=== PATIENT | male | born 1995 | race Caucasian/White ===

== ENCOUNTER 2021-04-17 11:32 | Inpatient (IN) | payer BC, OTHER ==
[2021-04-17 12:05] VITALS: BMI 33.9
[2021-04-17] MEDS ORDERED: NICOTINE POLACRILEX 2 MG GUM BUC PRN (12:59)
[2021-04-17] MEDS ORDERED: MAGNESIUM CITRATE 300 ML BOTTLE PO PRN (12:59)
[2021-04-17] MEDS ORDERED: ONDANSETRON *ODT* 4 MG TABLET SL PRN (12:59)
[2021-04-17] MEDS ORDERED: MENTHOL/PHENOL 1 EACH UD MM PRN (12:59)
[2021-04-17] MEDS ORDERED: cloNIDine HCL 0.1 MG TABLET PO PRN (12:59)
[2021-04-17] MEDS ORDERED: IBUPROFEN 400 MG TABLET (FP) PO PRN (12:59)
[2021-04-17] MEDS ORDERED: ACETAMINOPHEN 325 MG TABLET (FP) PO PRN ×2 (12:59)
[2021-04-17] MEDS ORDERED: MAGNESIUM HYDROX 2400MG/30ML ORAL SUSPENSION 30 ML CUP PO PRN (12:59)
[2021-04-17] MEDS ORDERED: BISMUTH SUBSALICYLATE 524 MG/30 ML PO PRN (12:59)
[2021-04-17] MEDS ORDERED: MAG HYDROX/AL HYDROX/SIMETH 30 ML UNIT-DOSE CUP PO PRN (12:59)
[2021-04-17] MEDS ORDERED: METHADONE HCL 10 MG TABLET (FOR DETOX USE ONLY) PO ONE (13:30)
[2021-04-17] MEDS: PRENATAL VITAMINS W/ FOLIC ACID TABLET (FP) PO SCH (13:44)
[2021-04-17] MEDS: NICOTINE 7 MG/24 HOURS TOPICAL PATCH TD SCH (13:44)
[2021-04-17] MEDS: METHOCARBAMOL 500 MG TABLET PO PRN ×2 (13:44→22:13)
[2021-04-17] MEDS: hydrOXYzine PAMOATE 25 MG CAPSULE (FP) PO SCH ×3 (13:45→22:12)
[2021-04-17 16:56] LABS: HEMATOCRIT 35.4 % (35.4-49); HEMOGLOBIN 12.2 GM/dL (11.7-16.9); MCH 30.4 pg (25.7-33.7); MCHC 34.4 g/dl (32.0-35.9); MEAN CELL VOLUME 88.4 fl (80-96); MEAN PLT VOLUME 7.5 fl (7.5-11.1); PLATELET COUNT 303 K/MM3 (134-434); RBC 4.01 M/mm3 (4.00-5.60); RDW 13.6 % (11.9-15.9); WHITE BLOOD COUNT 6.3 K/mm3 (4.0-10.0)
[2021-04-17 17:17] LABS: ALBUMIN 3.7 g/dl (3.4-5.0); BLOOD UREA NITROGEN 17.6 mg/dL (7-18); CALCIUM 8.5 mg/dL (8.5-10.1)
[2021-04-17 17:21] LABS: CREATININE 0.9 mg/dL (0.55-1.3)
[2021-04-17 17:22] LABS: BILIRUBIN,TOTAL 0.3 mg/dL (0.2-1); TOT PROT 7.7 g/dl (6.4-8.2)
[2021-04-17 18:26] LABS: HIV INTERPRETATION NEGATIVE (NEGATIVE)
[2021-04-17] MEDS ORDERED: MELATONIN 5 MG TABLETS PO SCH (22:00)
[2021-04-17] MEDS: THIAMINE HCL 100 MG TABLET (FP) PO SCH (22:12)
[2021-04-17] MEDS: SUVOREXANT 10 MG TABLET PO PRN (22:12)
[2021-04-18] MEDS: hydrOXYzine PAMOATE 25 MG CAPSULE (FP) PO SCH ×5 (05:53→22:08)
[2021-04-18] MEDS ORDERED: METHADONE HCL 10 MG TABLET (FOR DETOX USE ONLY) ONE (09:05)
[2021-04-18] MEDS ORDERED: METHADONE HCL 5 MG TABLET (FOR DETOX USE ONLY) ONE (09:05)
[2021-04-18] MEDS ORDERED: METHADONE (DETOX) 20 MG, METHADONE (DETOX) 5 MG PO ONE (10:00)
[2021-04-18] MEDS: PRENATAL VITAMINS W/ FOLIC ACID TABLET (FP) PO SCH (10:09)
[2021-04-18] MEDS: NICOTINE 7 MG/24 HOURS TOPICAL PATCH TD SCH (10:09)
[2021-04-18] MEDS: METHOCARBAMOL 500 MG TABLET PO PRN ×2 (10:09→22:08)
[2021-04-18] MEDS: diazePAM 5 MG TABLET PO PRN ×3 (10:11→20:46)
[2021-04-18] MEDS: THIAMINE HCL 100 MG TABLET (FP) PO SCH (22:08)
[2021-04-19] MEDS: hydrOXYzine PAMOATE 25 MG CAPSULE (FP) PO SCH ×5 (08:04→22:12)
[2021-04-19] MEDS: diazePAM 5 MG TABLET PO PRN ×4 (09:10→22:16)
[2021-04-19] MEDS: PRENATAL VITAMINS W/ FOLIC ACID TABLET (FP) PO SCH (09:12)
[2021-04-19] MEDS ORDERED: METHADONE HCL 10 MG TABLET (FOR DETOX USE ONLY) PO ONE (10:00)
[2021-04-19] MEDS: METHOCARBAMOL 500 MG TABLET PO PRN ×2 (10:09→17:56)
[2021-04-19] MEDS: NICOTINE 7 MG/24 HOURS TOPICAL PATCH TD SCH (10:10)
[2021-04-19] MEDS: THIAMINE HCL 100 MG TABLET (FP) PO SCH (22:13)
[2021-04-19] MEDS: SUVOREXANT 10 MG TABLET PO PRN (22:16)
[2021-04-20] MEDS: diazePAM 5 MG TABLET PO PRN ×4 (05:25→21:46)
[2021-04-20] MEDS: hydrOXYzine PAMOATE 25 MG CAPSULE (FP) PO SCH ×6 (05:42→23:13)
[2021-04-20 06:08] LABS: SARS-CoV-2 NAA Not Detected (Not Detected)
[2021-04-20] MEDS ORDERED: METHADONE HCL 10 MG TABLET (FOR DETOX USE ONLY) ONE (09:08)
[2021-04-20] MEDS ORDERED: METHADONE HCL 5 MG TABLET (FOR DETOX USE ONLY) ONE (09:09)
[2021-04-20] MEDS ORDERED: METHADONE (DETOX) 10 MG, METHADONE (DETOX) 5 MG PO ONE (10:00)
[2021-04-20] MEDS: NICOTINE 7 MG/24 HOURS TOPICAL PATCH TD SCH (10:08)
[2021-04-20] MEDS: PRENATAL VITAMINS W/ FOLIC ACID TABLET (FP) PO SCH (10:08)
[2021-04-20] MEDS: METHOCARBAMOL 500 MG TABLET PO PRN ×2 (10:11→19:30)
[2021-04-20] MEDS ORDERED: SUVOREXANT 10 MG TABLET PO PRN (22:00)
[2021-04-20] MEDS: THIAMINE HCL 100 MG TABLET (FP) PO SCH (23:13)
[2021-04-21] MEDS: hydrOXYzine PAMOATE 25 MG CAPSULE (FP) PO SCH ×3 (05:14→13:00)
[2021-04-21] MEDS: diazePAM 5 MG TABLET PO PRN (05:15)
[2021-04-21] MEDS: METHOCARBAMOL 500 MG TABLET PO PRN (05:16)
[2021-04-21 09:02] VITALS: BP 114/53; PULSE 86; TEMP 96.8
[2021-04-21] MEDS ORDERED: METHADONE HCL 10 MG TABLET (FOR DETOX USE ONLY) PO ONE (10:00)
[2021-04-21] MEDS: PRENATAL VITAMINS W/ FOLIC ACID TABLET (FP) PO SCH (10:14)
[2021-04-21] MEDS: NICOTINE 7 MG/24 HOURS TOPICAL PATCH TD SCH (10:14)
[2021-04-22] MEDS ORDERED: METHADONE HCL 5 MG TABLET (FOR DETOX USE ONLY) PO ONE (06:00)
== END 2021-04-21 12:50 | disposition home or self-care (01) | DRG 773 ==
LOC: YASAS 11:32 → Y3N 12:48
PROVIDERS: ADMIT Allergy & Immunology; ATTEND Allergy & Immunology
PROC: HZ2ZZZZ Detoxification Services for Substance Abuse Treatment (ICD-10-PCS; principal; 2021-04-17)
DX: F11.23 Opioid dependence with withdrawal (principal); F17.210 Nicotine dependence, cigarettes, uncomplicated; F19.282 Other psychoactive substance dependence with psychoactive substance-induced sleep disorder; F32.9 Major depressive disorder, single episode, unspecified; Z98.890 Other specified postprocedural states
CPT/HCPCS: 36415; 80053; 85027; 86780; 87389; 93005; 93010; C9803; J0735; Q0162; U0003; U0005

== ENCOUNTER 2022-10-30 11:06 | Inpatient (IN) | payer OTHER ==
[2022-10-30 12:15] VITALS: BMI 30.1
[2022-10-30] MEDS ORDERED: P-EPHED 60MG/TRIPROLIDI 2.5MG TABLET PO PRN (14:11)
[2022-10-30] MEDS ORDERED: NICOTINE 10 MG CARTRIDGE (INHALER) IH PRN (14:11)
[2022-10-30] MEDS ORDERED: POLYETHYLENE GLYCOL (HEALTHYLAX) 3350 17 GM PACKET PO PRN (14:11)
[2022-10-30] MEDS ORDERED: guaiFENesin 200 MG/10 ML 10 ML UNIT-DOSE CUPS PO PRN (14:11)
[2022-10-30] MEDS ORDERED: ACETAMINOPHEN 325 MG TABLET (FP) PO PRN (14:11)
[2022-10-30] MEDS ORDERED: MAGNESIUM HYDROX 2400MG/30ML ORAL SUSPENSION 30 ML CUP PO PRN (14:11)
[2022-10-30] MEDS ORDERED: LOPERAMIDE HCL 2 MG CAPSULE PO PRN (14:11)
[2022-10-30] MEDS ORDERED: BENZOCAINE/MENTHOL (CHLORASEPTIC ) LOZENGE MM PRN (14:11)
[2022-10-30] MEDS ORDERED: MAG HYDROX/AL HYDROX/SIMETH 30 ML UNIT-DOSE CUP PO PRN (14:11)
[2022-10-30] MEDS: THIAMINE HCL 100 MG TABLET (FP) PO SCH (21:29)
[2022-10-30] MEDS: NICOTINE 7 MG/24 HOURS TOPICAL PATCH TD SCH (21:30)
[2022-10-30] MEDS: PRENATAL VITAMINS W/ FOLIC ACID TABLET (FP) PO SCH (21:30)
[2022-10-30] MEDS ORDERED: MELATONIN 5 MG TABLETS PO SCH (22:00)
[2022-10-30] MEDS: CLINDAMYCIN HCL 150 MG CAPSULE (FP) PO SCH (23:37)
[2022-10-31] MEDS: CLINDAMYCIN HCL 150 MG CAPSULE (FP) PO SCH ×4 (06:28→23:17)
[2022-10-31] MEDS: PRENATAL VITAMINS W/ FOLIC ACID TABLET (FP) PO SCH (09:26)
[2022-10-31] MEDS: hydrOXYzine PAMOATE 25 MG CAPSULE (FP) PO PRN ×2 (09:27→21:23)
[2022-10-31] MEDS: NICOTINE 7 MG/24 HOURS TOPICAL PATCH TD SCH (09:52)
[2022-10-31 10:24] LABS: PH,URINE 7.5 (5.0-8.0); URINE APPEARANCE CLEAR; URINE BILIRUBIN NEGATIVE (NEGATIVE); URINE COLOR YELLOW; URINE GLUCOSE (UA) NEGATIVE (NEGATIVE); URINE KETONE NEGATIVE (NEGATIVE); URINE LEUK ESTERASE NEGATIVE (NEGATIVE); URINE NITRITE NEGATIVE (NEGATIVE); URINE PROTEIN NEGATIVE (NEGATIVE); URINE UROBILINOGEN 0.2 mg/dL (0.2-1.0)
[2022-10-31 10:25] LABS: HEMATOCRIT 31.4 % (35.4-49); HEMOGLOBIN 10.7 GM/dL (11.7-16.9); MCH 28.8 pg (25.7-33.7); MEAN CELL VOLUME 84.7 fl (80-96); MEAN PLT VOLUME 7.4 fl (7.5-11.1); PLATELET COUNT 276 10^3/uL (134-434); RBC 3.71 M/mm3 (4.00-5.60); RDW 16.4 % (11.9-15.9); WHITE BLOOD COUNT 4.4 K/mm3 (4.0-10.0)
[2022-10-31 10:32] LABS: ALBUMIN 2.9 g/dl (3.4-5.0); CALCIUM 8.7 mg/dL (8.5-10.1)
[2022-10-31 10:35] LABS: CREATININE 0.7 mg/dL (0.55-1.3)
[2022-10-31 10:36] LABS: BILIRUBIN,TOTAL 0.6 mg/dL (0.2-1); TOT PROT 6.7 g/dl (6.4-8.2)
[2022-10-31 11:36] LABS: SYPHILIS W/ RPR CONF NON-REACTIVE (NONREACTIVE)
[2022-10-31] MEDS ORDERED: BUPRENORPHINE HCL 150 MCG, BUPRENORPHINE HCL 75 MCG BC ONE (12:17)
[2022-10-31] MEDS ORDERED: BUPRENORPHINE HCL 150 MCG, BUPRENORPHINE HCL 75 MCG BC PRN (12:17)
[2022-10-31] MEDS: THIAMINE HCL 100 MG TABLET (FP) PO SCH (21:21)
[2022-10-31] MEDS: SUVOREXANT 10 MG TABLET PO PRN (21:22)
[2022-11-01] MEDS ORDERED: BUPRENORPHINE HCL 150 MCG, BUPRENORPHINE HCL 75 MCG BC PRN
[2022-11-01] MEDS ORDERED: BUPRENORPHINE HCL 150 MCG, BUPRENORPHINE HCL 75 MCG BC SCH (06:00)
[2022-11-01] MEDS: CLINDAMYCIN HCL 150 MG CAPSULE (FP) PO SCH ×2 (06:05→11:39)
[2022-11-01] MEDS: hydrOXYzine PAMOATE 25 MG CAPSULE (FP) PO PRN ×2 (08:38→16:45)
[2022-11-01] MEDS ORDERED: methaDONE HCL 10 MG TABLET PO SCH (09:30)
[2022-11-01] MEDS: PRENATAL VITAMINS W/ FOLIC ACID TABLET (FP) PO SCH (09:40)
[2022-11-01] MEDS: NICOTINE 7 MG/24 HOURS TOPICAL PATCH TD SCH (09:41)
[2022-11-01] MEDS: cloNIDine HCL 0.1 MG TABLET PO PRN ×3 (10:29→21:16)
[2022-11-01] MEDS: IBUPROFEN 400 MG TABLET (FP) PO PRN ×2 (10:29→18:50)
[2022-11-01] MEDS: THIAMINE HCL 100 MG TABLET (FP) PO SCH (21:14)
[2022-11-01] MEDS: SUVOREXANT 10 MG TABLET PO PRN (21:15)
[2022-11-02] MEDS: methaDONE HCL 10 MG TABLET PO SCH (05:51)
[2022-11-02] MEDS ORDERED: BUPRENORPHINE HCL 450 MCG FILM BC SCH (06:00)
[2022-11-02] MEDS: PRENATAL VITAMINS W/ FOLIC ACID TABLET (FP) PO SCH (10:00)
[2022-11-02] MEDS: NICOTINE 7 MG/24 HOURS TOPICAL PATCH TD SCH (10:00)
[2022-11-02] MEDS: hydrOXYzine PAMOATE 25 MG CAPSULE (FP) PO PRN ×2 (11:54→22:21)
[2022-11-02] MEDS: IBUPROFEN 400 MG TABLET (FP) PO PRN ×2 (12:34→21:08)
[2022-11-02] MEDS: cloNIDine HCL 0.1 MG TABLET PO PRN ×2 (12:42→16:57)
[2022-11-02] MEDS: THIAMINE HCL 100 MG TABLET (FP) PO SCH (21:06)
[2022-11-02] MEDS: SUVOREXANT 10 MG TABLET PO PRN (21:07)
[2022-11-03] MEDS ORDERED: BUPRENORPHINE/NALOXONE 4 MG/1 MG FILM PACKET SL SCH (06:00)
[2022-11-03] MEDS: methaDONE HCL 10 MG TABLET PO SCH (06:06)
[2022-11-03] MEDS: hydrOXYzine PAMOATE 25 MG CAPSULE (FP) PO PRN ×3 (06:07→21:19)
[2022-11-03] MEDS: IBUPROFEN 400 MG TABLET (FP) PO PRN ×3 (06:43→21:20)
[2022-11-03] MEDS: PRENATAL VITAMINS W/ FOLIC ACID TABLET (FP) PO SCH (10:10)
[2022-11-03] MEDS: NICOTINE 7 MG/24 HOURS TOPICAL PATCH TD SCH (10:12)
[2022-11-03] MEDS: cloNIDine HCL 0.1 MG TABLET PO PRN (14:49)
[2022-11-03] MEDS: THIAMINE HCL 100 MG TABLET (FP) PO SCH (21:19)
[2022-11-03] MEDS: SUVOREXANT 10 MG TABLET PO PRN (21:20)
[2022-11-04] MEDS: methaDONE HCL 10 MG TABLET PO SCH (05:59)
[2022-11-04] MEDS ORDERED: BUPRENORPHINE/NALOXONE 8 MG/2 MG FILM PACKET SL ONE (06:00)
[2022-11-04] MEDS: PRENATAL VITAMINS W/ FOLIC ACID TABLET (FP) PO SCH (10:18)
[2022-11-04] MEDS: NICOTINE 7 MG/24 HOURS TOPICAL PATCH TD SCH (10:18)
[2022-11-04] MEDS: hydrOXYzine PAMOATE 25 MG CAPSULE (FP) PO PRN (12:18)
[2022-11-04] MEDS: IBUPROFEN 400 MG TABLET (FP) PO PRN ×2 (12:18→21:03)
[2022-11-04] MEDS ORDERED: hydrOXYzine PAMOATE 25 MG CAPSULE (FP) PO PRN (16:19)
[2022-11-04] MEDS: THIAMINE HCL 100 MG TABLET (FP) PO SCH (21:01)
[2022-11-04] MEDS: BACLOFEN 10 MG TABLET (FP) PO SCH (21:02)
[2022-11-04] MEDS: SUVOREXANT 10 MG TABLET PO PRN (21:02)
[2022-11-05] MEDS: BACLOFEN 10 MG TABLET (FP) PO SCH ×3 (06:11→21:09)
[2022-11-05] MEDS: methaDONE HCL 10 MG TABLET PO SCH (06:12)
[2022-11-05] MEDS: IBUPROFEN 400 MG TABLET (FP) PO PRN ×2 (08:53→21:09)
[2022-11-05] MEDS ORDERED: FERROUS SO4 300 MG/5 ML ORAL SOLN UNIT DOSE CUPS GT SCH (10:00)
[2022-11-05] MEDS: PRENATAL VITAMINS W/ FOLIC ACID TABLET (FP) PO SCH (10:19)
[2022-11-05] MEDS: NICOTINE 7 MG/24 HOURS TOPICAL PATCH TD SCH (10:19)
[2022-11-05] MEDS: FERROUS SO4 325 MG TABLET (FP) PO SCH (10:20)
[2022-11-05] MEDS: THIAMINE HCL 100 MG TABLET (FP) PO SCH (21:09)
[2022-11-05] MEDS: SUVOREXANT 10 MG TABLET PO PRN (21:09)
[2022-11-06] MEDS: BACLOFEN 10 MG TABLET (FP) PO SCH ×3 (06:27→21:00)
[2022-11-06] MEDS: methaDONE HCL 10 MG TABLET PO SCH (06:28)
[2022-11-06] MEDS: FERROUS SO4 325 MG TABLET (FP) PO SCH (09:06)
[2022-11-06] MEDS: IBUPROFEN 400 MG TABLET (FP) PO PRN ×2 (09:06→21:01)
[2022-11-06] MEDS: PRENATAL VITAMINS W/ FOLIC ACID TABLET (FP) PO SCH (09:06)
[2022-11-06] MEDS: methaDONE HCL 40 MG DISPERSABLE TABLET PO SCH (09:08)
[2022-11-06] MEDS: NICOTINE 7 MG/24 HOURS TOPICAL PATCH TD SCH (10:25)
[2022-11-06] MEDS: THIAMINE HCL 100 MG TABLET (FP) PO SCH (21:00)
[2022-11-06] MEDS: SUVOREXANT 10 MG TABLET PO PRN (21:01)
[2022-11-07] MEDS: BACLOFEN 10 MG TABLET (FP) PO SCH ×3 (06:18→21:03)
[2022-11-07] MEDS: IBUPROFEN 400 MG TABLET (FP) PO PRN ×2 (06:18→21:04)
[2022-11-07] MEDS: methaDONE HCL 40 MG DISPERSABLE TABLET PO SCH (06:18)
[2022-11-07] MEDS: NICOTINE 7 MG/24 HOURS TOPICAL PATCH TD SCH (09:44)
[2022-11-07] MEDS: FERROUS SO4 325 MG TABLET (FP) PO SCH (09:44)
[2022-11-07] MEDS: PRENATAL VITAMINS W/ FOLIC ACID TABLET (FP) PO SCH (09:44)
[2022-11-07] MEDS: THIAMINE HCL 100 MG TABLET (FP) PO SCH (21:03)
[2022-11-07] MEDS: SUVOREXANT 10 MG TABLET PO PRN (21:04)
[2022-11-08] MEDS: methaDONE HCL 40 MG DISPERSABLE TABLET PO SCH (06:31)
[2022-11-08] MEDS: BACLOFEN 10 MG TABLET (FP) PO SCH ×3 (06:32→21:20)
[2022-11-08] MEDS: PRENATAL VITAMINS W/ FOLIC ACID TABLET (FP) PO SCH (10:26)
[2022-11-08] MEDS: FERROUS SO4 325 MG TABLET (FP) PO SCH (10:26)
[2022-11-08] MEDS: NICOTINE 7 MG/24 HOURS TOPICAL PATCH TD SCH (10:26)
[2022-11-08] MEDS: THIAMINE HCL 100 MG TABLET (FP) PO SCH (21:20)
[2022-11-08] MEDS: IBUPROFEN 400 MG TABLET (FP) PO PRN (21:21)
[2022-11-08] MEDS ORDERED: SUVOREXANT 10 MG TABLET PO PRN (22:00)
[2022-11-09] MEDS: BACLOFEN 10 MG TABLET (FP) PO SCH ×3 (06:02→21:15)
[2022-11-09] MEDS: methaDONE HCL 40 MG DISPERSABLE TABLET PO SCH (06:03)
[2022-11-09] MEDS: FERROUS SO4 325 MG TABLET (FP) PO SCH (09:51)
[2022-11-09] MEDS: PRENATAL VITAMINS W/ FOLIC ACID TABLET (FP) PO SCH (09:51)
[2022-11-09] MEDS: IBUPROFEN 400 MG TABLET (FP) PO PRN ×2 (09:52→21:14)
[2022-11-09] MEDS: THIAMINE HCL 100 MG TABLET (FP) PO SCH (21:15)
[2022-11-10] MEDS: BACLOFEN 10 MG TABLET (FP) PO SCH ×3 (05:50→21:58)
[2022-11-10] MEDS: methaDONE HCL 40 MG DISPERSABLE TABLET PO SCH (05:50)
[2022-11-10] MEDS: PRENATAL VITAMINS W/ FOLIC ACID TABLET (FP) PO SCH (09:45)
[2022-11-10] MEDS: FERROUS SO4 325 MG TABLET (FP) PO SCH (09:45)
[2022-11-10] MEDS: IBUPROFEN 400 MG TABLET (FP) PO PRN ×2 (09:46→21:19)
[2022-11-10] MEDS: THIAMINE HCL 100 MG TABLET (FP) PO SCH (21:19)
[2022-11-10] MEDS: SUVOREXANT 10 MG TABLET PO PRN (21:21)
[2022-11-11] MEDS: BACLOFEN 10 MG TABLET (FP) PO SCH ×3 (06:28→21:55)
[2022-11-11] MEDS: methaDONE HCL 40 MG DISPERSABLE TABLET PO SCH (06:28)
[2022-11-11] MEDS: FERROUS SO4 325 MG TABLET (FP) PO SCH (10:00)
[2022-11-11] MEDS: PRENATAL VITAMINS W/ FOLIC ACID TABLET (FP) PO SCH (10:00)
[2022-11-11] MEDS: IBUPROFEN 400 MG TABLET (FP) PO PRN ×2 (10:00→21:54)
[2022-11-11] MEDS: THIAMINE HCL 100 MG TABLET (FP) PO SCH (21:56)
[2022-11-11] MEDS: SUVOREXANT 10 MG TABLET PO PRN (21:57)
[2022-11-12] MEDS: methaDONE HCL 40 MG DISPERSABLE TABLET PO SCH (06:23)
[2022-11-12] MEDS: IBUPROFEN 400 MG TABLET (FP) PO PRN (06:24)
[2022-11-12] MEDS: BACLOFEN 10 MG TABLET (FP) PO SCH (06:24)
[2022-11-12 06:54] VITALS: BP 128/71; PULSE 55; RESP 16; TEMP 97.7
== END 2022-11-12 08:40 | disposition home or self-care (01) | DRG 772 ==
LOC: YASAS 11:06 → Y3W 19:45
PROVIDERS: ADMIT Allergy & Immunology; ATTEND Psychiatry & Neurology Pain Medicine
PROC: HZ42ZZZ Group Counseling for Substance Abuse Treatment, Cognitive-Behavioral (ICD-10-PCS; principal; 2022-10-30)
DX: F11.20 Opioid dependence, uncomplicated (principal); F13.20 Sedative, hypnotic or anxiolytic dependence, uncomplicated; F14.10 Cocaine abuse, uncomplicated; F19.282 Other psychoactive substance dependence with psychoactive substance-induced sleep disorder; F41.9 Anxiety disorder, unspecified; F32.A Depression, unspecified; L97.111 Non-pressure chronic ulcer of right thigh limited to breakdown of skin; R00.1 Bradycardia, unspecified; Z87.891 Personal history of nicotine dependence; Z28.310 Unvaccinated for COVID-19; Z28.9 Immunization not carried out for unspecified reason
CPT/HCPCS: 36415; 80053; 81003; 85027; 86780; 86803; 87811; 93005; 93010; C9803-CS; J0475; U0003; U0005